=== PATIENT | female | born 2000 | race Caucasian/White ===

== ENCOUNTER 2018-10-21 01:39 | Emergency (ER) | payer MEDICAID ==
[~2018-10-21] VITALS: Ht 165.1 cm; Wt 61.2 kg
[2018-10-21 01:43] VITALS: BP 140/90
--- NOTE | 2018-10-21 01:43 | NUR ---
PT TAKEN TO BED 7
--- NOTE | 2018-10-21 01:55 | NUR ---
came in with complained of generalized abd pain,10/10, rib pain , cough, and cant breath started 2 hours ago.she denies drug and alcohol used. Sa02 100%
--- NOTE | 2018-10-21 01:56 | NUR ---
SEEN AND EXAMINED BY TIM WITH ORDERS AND CARRIED OUT.
[2018-10-21] MEDS ORDERED: NACL 0.9% 1,000 ML IV ONE (02:00)
[2018-10-21] MEDS ORDERED: KETOROLAC 30 MG/ML VIAL IVP ONE (02:00)
[2018-10-21] MEDS ORDERED: LORazepam 2 MG/ML VIAL IVP ONE (02:00)
--- NOTE | 2018-10-21 02:05 | NUR ---
MEDICATED PER ERMDS ORDER, TOLERATED WELL.
--- NOTE | 2018-10-21 02:51 | NUR ---
PT WENT TO XRAY
--- NOTE | 2018-10-21 02:52 | NUR ---
Adriana nahs in [facility] - 10/21/18 at 0252 by AGNLE PT TAKEN TO XRAY
--- NOTE | 2018-10-21 03:10 | NUR ---
PT STATED SHE NO LONGER HAS DIZZINESS OR BLURRED VISION. PT STATED SHE IS STATING TO "FEEL BETTER". ER MADE AWRE
--- NOTE | 2018-10-21 03:20 | NUR ---
PT AMBULATRED TO THE RESTROOM WITH ASSISTANCE. PT TOLERATED WELL.
[2018-10-21 03:50] VITALS: BP 140/90
--- NOTE | 2018-10-21 03:50 | NUR ---
Patient discharged with v/s stable. Written and verbal after care instructions given and explained. Patient alert, oriented and verbalized understanding of instructions. Ambulatory with steady gait. All questions addressed prior to discharge. ID band removed. Patient advised to follow up with PMD. Rx of BENTYL AND MOTRIN WERE GIVEN given. Patient educated on indication of medication including possible reaction and side effects. Opportunity to ask questions provided and answered.
== END 2018-10-21 03:50 | disposition home or self-care (01) ==
LOC: MED 01:39
DX: K56.7 Ileus, unspecified (principal); J45.909 Unspecified asthma, uncomplicated
CPT/HCPCS: 74022; 81025; 93005; 96374; 96375; 99283; J1885; J2060; J7030